=== PATIENT | female | born 1990 ===

== ENCOUNTER 2025-01-18 20:14 | Emergency (ER) | payer SELFPAY ==
--- NOTE | ~2025-01-18 | XR_ITS ---
CLINICAL HISTORY: shortness of breath 1 view chest x-ray Comparison: None provided Findings: No consolidation or effusion. Normal size heart. No acute fracture. IMPRESSION: 1. No acute findings. This document has been electronically signed by: Wale Hall MD on 01/18/2025 21:14:16
--- NOTE | 2025-01-18 20:15 | ECG_ITS ---
Test Reason : CP Blood Pressure : */* mmHG Vent. Rate : 112 BPM Atrial Rate : 112 BPM P-R Int : 120 ms QRS Dur : 84 ms QT Int : 354 ms P-R-T Axes : 30 11 4 degrees QTcB Int : 483 ms Sinus tachycardia Nonspecific ST and T wave abnormality Abnormal ECG No previous ECGs available Referred By: Generic ED Physician Electronically Signed By: JACQUI ROLDAN MD
[2025-01-18 20:22] VITALS: BP 165/93; PULSE 115; RESP 16; TEMP 36.7; O2SAT 96
--- NOTE | 2025-01-18 20:24 | ED_ITS ---
HPI - SOB/Dyspnea General Chief Complaint: Dyspnea Stated Complaint: chest pain/SOB Related Data Allergies Allergy/AdvReac Type Severity Reaction Status Date / Time No Known Allergies Allergy Verified 01/18/25 20:25 [facility] Social History Social History Advance Directives: No Advance Directives Information Provided: No Do you have a plan to hurt others: No Plan Physical Exam 2 Vital Signs: Vital Signs: Last Vital Signs Temp 98.0 F 01/18/25 20:22 Pulse 115 H 01/18/25 20:22 Resp 16 01/18/25 20:22 BP 165/93 H 01/18/25 20:22 Pulse Ox 96 01/18/25 20:22 O2 Del Method Room Air 01/18/25 20:22 BMI result Body Mass Index 30.0 Course Course Course Narrative: This is a RME preformed in triage by Chely Briggs PA-C. Date: 01/18/25, time?830. Patient presents with chest pain sob x 1 day all day. Work UP:?labs, tox and ethanol screen, EKG, D dimer, EKG PE: appears, shaky, dehydrated and dishelved, tearful, dry oral mucosa, tachy 115-120s Will defer full ROS and PE to treating provider. Patient will continued to be monitored in the interim. Patient presents with acute chest pain that began earlier today (approximately half-day duration). Pain is described as a constant ?heart pain? rated 6?7/10. Associated symptoms include intermittent shortness of breath that ?comes and goes.? She notes feeling very shaky. Pain worsens with breathing. Denies any prior similar episodes. Denies nausea, vomiting, suicidal or homicidal ideation, history of anxiety, recreational drug use today, medication allergies, diabetes, or other known chronic medical problems. No prior hospitalizations. Last primary care visit approximately five years ago. Patient has been tearful throughout the encounter but is unsure of the reason. Lives alone with her dog and cat; mother drove her to clinic. Review of Systems: * Constitutional: Positive for shakiness. * Cardiovascular: Positive for chest pain (6-7/10); tachycardia observed on exam. * Respiratory: Intermittent shortness of breath. * Gastrointestinal: Denies nausea or vomiting. * Psychiatric: Tearful; denies suicidal or homicidal ideation. Medical Decision Making Lab Data 01/18/25 20:40 01/18/25 20:40 Labs: Lab Results 01/18/25 Range/Units 20:40 WBC 13.8 H (4.8-10.8) X10*3/uL RBC 5.11 (4.20-5.50) X10*6/uL Hgb 13.7 (12.0-16.0) g/dl Hct 40.6 (37.0-47.0) % MCV 79.5 L (80.0-98.0) fL MCH 26.8 L (27.0-33.0) pg MCHC 33.7 (31.0-35.0) g/dl RDW 13.6 (11.0-16.0) % Plt Count 221 (160-400) X10*3/uL MPV 10.6 (9.4-12.3) fL Immature Gran % (Auto) 0.2 (0.0-0.4) % Neut % (Auto) 74.2 H (45-73) % Lymph % (Auto) 20.0 (20-40) % [place] % (Auto) 5.0 (2-11) % Eos % (Auto) 0.4 (0-4) % Baso % (Auto) 0.2 (0-2) % Lymph # (Auto) 2.8 (1.2-4.9) X10*3/uL [place] # (Auto) 0.7 (0.1-1.2) X10*3/uL Eos # (Auto) 0.1 (0.0-0.4) X10*3/uL Baso # (Auto) 0.0 (0.0-0.2) X10*3/uL Abs Immat Gran (auto) 0.03 (0.00-0.03) X10*3/uL Absolute Neuts (auto) 10.3 H (2.0-8.3) x10*3/uL Absolute Nucleated RBC 0.000 (0.0-0.012) X10*3/uL Nucleated RBC % (auto) 0.0 (0.0-0.2) /100WBC D-Dimer High Sensitivty 213 NG/ML Sodium 142 (135-145) mmol/L Potassium 3.6 (3.3-5.1) mmol/L Chloride 111 H (96-108) mmol/L Carbon Dioxide 19 L (22-29) mmol/L Anion Gap 16 (12-20) BUN 9 (9-16) mg/dL Creatinine 0.61 (0.5-1.4) mg/dL Estim Creat Clear Calc 148.4 Estimated GFR > 60 Random Glucose 113 (60-115) mg/dL Calcium 10.0 (8.4-10.2) mg/dL Total Bilirubin 0.8 (0.0-1.0) mg/dL AST 62 H (5-31) U/L ALT 115 H (0-31) U/L Alkaline Phosphatase 81 (39-117) U/L Troponin I High Sens < 2.7 (<3.5-17.0) ng/L Total Protein 8.0 (6.5-8.0) g/dL Albumin 5.1 H (3.5-5.0) g/dL Beta-Hydroxybutyrate 0.17 (0.02-0.27) mmol/L Beta HCG, Quant < 2 mIU/mL Ethyl Alcohol < 10 mg/dL Influenza Type A (PCR) NEGATIVE (Negative) Influenza Type B (PCR) NEGATIVE (Negative) RSV RNA Qual (PCR) NEGATIVE (Negative) SARS-CoV-2 RNA (RT-PCR) NEGATIVE (Negative) Discharge Plan Discharge Clinical Impression: Shortness of breath Patient Disposition: Left W/O Completing Treatment Discharge Date/Time: 01/18/25 23:43
[2025-01-18 20:46] LABS: MANUAL DIFF FLAG NO
[2025-01-18 20:47] LABS: Hematocrit 40.6 % (37.0-47.0); Hemoglobin 13.7 g/dl (12.0-16.0); Imm Gran Abs Auto 0.03 X10*3/uL (0.00-0.03); Imm Gran Pct Auto 0.2 % (0.0-0.4); Lymphocytes Absolute Auto 2.8 X10*3/uL (1.2-4.9); Mean Corpuscular HGB Conc 33.7 g/dl (31.0-35.0); Mean Corpuscular Hemoglobin 26.8 pg (27.0-33.0); Mean Corpuscular Volume 79.5 fL (80.0-98.0); NRBC Abs Auto 0.000 X10*3/uL (0.0-0.012); NRBC Pct Auto 0.0 /100WBC (0.0-0.2); Platelet Count 221 X10*3/uL (160-400); Red Blood Count 5.11 X10*6/uL (4.20-5.50); White Blood Count 13.8 X10*3/uL (4.8-10.8)
[2025-01-18 20:54] LABS: D Dimer High Sensitivity 213 NG/ML
[2025-01-18 21:23] LABS: Resp Syncy Virus RNA Qual PCR NEGATIVE (Negative); SARS COV2 PCR INHOUSE NEGATIVE (Negative)
[2025-01-18 21:27] LABS: Alanine Aminotransferase 115 U/L (0-31); Albumin Level 5.1 g/dL (3.5-5.0); Alkaline Phosphatase 81 U/L (39-117); Anion Gap 16 (12-20); Aspartate Amino Transferase 62 U/L (5-31); Blood Urea Nitrogen 9 mg/dL (9-16); Calcium 10.0 mg/dL (8.4-10.2); Carbon Dioxide 19 mmol/L (22-29); Chloride 111 mmol/L (96-108); Creatinine Clr Calc Pharmacy 148.4; Estimated Glomerular Filt Rate > 60; Potassium 3.6 mmol/L (3.3-5.1); Sodium 142 mmol/L (135-145); Total Protein 8.0 g/dL (6.5-8.0); Troponin-I High Sensitivity < 2.7 ng/L (<3.5-17.0)
== END 2025-01-18 23:43 | disposition left against medical advice (07) ==
LOC: HO.ED 23:37
PROVIDERS: Physician Assistant Medical; Emergency Provider Emergency Medicine
DX: R06.02 Shortness of breath (principal); R07.9 Chest pain, unspecified; R00.0 Tachycardia, unspecified; R94.31 Abnormal electrocardiogram [ECG] [EKG]; Z03.818 Encounter for observation for suspected exposure to other biological agents ruled out; Z53.21 Procedure and treatment not carried out due to patient leaving prior to being seen by health care provider
CPT/HCPCS: 71046; 80053; 80307; 82010; 84484; 84702; 85025; 85379; 87637; 93005; 99283

== ENCOUNTER → 2025-01-18 20:15 | Outpatient (BNV) | payer SELFPAY | PROVIDERS: Emergency Provider Emergency Medicine; Visit Provider Internal Medicine Cardiovascular Disease | DX: R00.0 Tachycardia, unspecified (principal) | CPT/HCPCS: 93010 ==

== ENCOUNTER → 2025-01-18 20:26 | Outpatient (BNV) | payer SELFPAY | PROVIDERS: Visit Provider Radiology Diagnostic Radiology | DX: R06.02 Shortness of breath (principal) | CPT/HCPCS: 71046 ==